=== PATIENT | male | born 1955 | race Caucasian/White ===

== ENCOUNTER 2022-10-05 08:34 | Emergency (ER) | payer OTHER ==
[2022-10-05] MEDS ORDERED: Cyclobenzaprine 10 MG Tab PO ONE (09:01)
[2022-10-05] MEDS ORDERED: Ibuprofen 800 MG Tab PO ONE (09:01)
[2022-10-05] MEDS ORDERED: oxyCODONE 5 MG Tab PO ONE (09:01)
[2022-10-05] MEDS ORDERED: Ondansetron 4 MG Tab.DIS PO ONE (09:47)
[2022-10-05] MEDS ORDERED: HYDROmorphone 2 MG/ML Syringe ONE (10:20)
[2022-10-05] MEDS ORDERED: HYDROmorphone 2 MG/ML Syringe IM ONE (10:22)
[2022-10-05] MEDS ORDERED: Cyclobenzaprine 10 MG Tab ONE (17:00)
== END 2022-10-05 11:19 | disposition home or self-care (01) ==
LOC: LB.ED 08:34
DX: M54.50 Low back pain, unspecified (principal); E11.9 Type 2 diabetes mellitus without complications; I10 Essential (primary) hypertension; E66.9 Obesity, unspecified
CPT/HCPCS: 96372; 99283; A9270-GY; J1170; Q0162

== ENCOUNTER 2024-10-11 09:07 | Emergency (ER) | payer MEDICARE ==
[2024-10-11] MEDS: Diphtheria,Pertussis(Acell),Tetanus Vaccine 0.5 ML Syringe IM ONE (09:33)
== END 2024-10-11 09:55 | disposition home or self-care (01) ==
LOC: LB.ED 09:07
DX: S30.850A Superficial foreign body of lower back and pelvis, initial encounter (principal); I10 Essential (primary) hypertension; E11.9 Type 2 diabetes mellitus without complications; E66.9 Obesity, unspecified; Z79.82 Long term (current) use of aspirin; Z79.899 Other long term (current) drug therapy; Z79.84 Long term (current) use of oral hypoglycemic drugs; Z68.41 Body mass index [BMI] 40.0-44.9, adult; W45.8XXA Other foreign body or object entering through skin, initial encounter
CPT/HCPCS: 72220; 90471; 90715; 99282; 99283-25